=== PATIENT | female | born 1990 | race Caucasian/White ===

== ENCOUNTER 2017-05-06 14:14 | Emergency (ER) | payer MEDICAID ==
[2017-05-06 14:50] VITALS: BP 122/70
--- NOTE | 2017-05-06 15:14 | ED Physician Documentation ---
Skin Rash - HISTORIAN Historian: patient - HPI Stated Complaint: rash Chief Complaint: Skin Rash Onset: days ago (3) Timing: worse Duration: worse Location: other (right groin) Quality: itchy Context: Medication Exposure: none Context: Food Exposure: none Further Comments: yes (27 year old female patient presents with rash in right groin. States it started 3 days ago and has become worse. Has not used any OTC medications on the rash. Has animals in the home.) - ROS CONST: none CVS/RESP: none EYES/ENT: none GI/: none MS/SKIN/LYMPH: none NEURO/PSYCH: none - PAST HX Past History: none Other History: other (29 weeks ) Allergies/Adverse Reactions: Allergies Allergy/AdvReac Type Severity Reaction Status Date / Time No Known Allergies Allergy Verified 05/06/17 14:37 Home Medications: Ambulatory Orders Medication Instructions Recorded Docusate Sodium [Stool Softener] 50 mg PO QDAY 05/06/17 Iron Supplement 05/06/17 Pediatric Multivit Comb No.76 1 each PO QDAY 05/06/17 [Flintstones Complete] Ranitidine HCl [Zantac] 75 mg PO QDAY 05/06/17 - SOCIAL HX Smoking History: non-smoker - FAMILY HX Family History: none - VITAL SIGNS Vital Signs: Vital Signs Temp Pulse Resp BP Pulse Ox 98.2 F 105 H 14 122/70 98 05/06/17 14:15 05/06/17 14:48 05/06/17 14:48 05/06/17 14:48 05/06/17 14:15 - REVIEWED ASSESSMENTS Nursing Assessment Reviewed: Yes Vitals Reviewed: Yes Skin Rash Physical Exam - EXAM General Appearance: no acute distress, alert Skin: warm,dry, tender indurated area (right groin), skin rash Location: other (right groin) Character: asymmetric, maculopapular, patchy, erythematous Symptoms: other (itching). No: warmth, tenderness Extremities: non-tender, nml ROM, no edema EENT: eyes nml inspection Abdomen: non-tender, no organomegaly, nml bowel sounds, other (29 weeks , + movement while in ER) Neuro/Psych: oriented x3, CN's nml as tested, motor nml, sensation nml, mood/ affect nml Discharge Clincal Impression: Cutaneous candidiasis Referrals: Primary Doctor,No [Primary Care Provider] - 2 Days Additional Instructions: Clean area BID with soap and water, pat dry, then apply Clotrimazole cream bid Home Medications: Ambulatory Orders Docusate Sodium [Stool Softener] 50 mg PO QDAY 05/06/17 Iron Supplement 05/06/17 Pediatric Multivit Comb No.76 [Flintstones Complete] 1 each PO QDAY 05/06/17 Ranitidine HCl [Zantac] 75 mg PO QDAY 05/06/17 Condition: Stable Disposition: 01 HOME, SELF-CARE Decision to Admit: NO Decision Time: 14:41
== END 2017-05-06 14:40 | disposition home or self-care (01) ==
LOC: ED 14:14
DX: B37.89 Other sites of candidiasis (principal)
CPT/HCPCS: 99283

== ENCOUNTER 2017-08-05 12:49 | Outpatient (CLI) | payer MEDICAID | END 2017-08-05 12:50 | LOC: LABRHC 12:49 | PROVIDERS: ATTEND Physician Assistant | DX: R35.0 Frequency of micturition (principal) | CPT/HCPCS: 87086 ==